=== PATIENT | male | born 1990 ===

== ENCOUNTER 2016-12-24 18:14 | Emergency (ER) | payer OTHER ==
[~2016-12-24 18:14] MED LIST: Acetaminophen/HYDROcodone 325-5 MG Tab PO ONE
[2016-12-24 18:20] VITALS: BP 151/84
[2016-12-24] MEDS ORDERED: Lidocaine 1% 20 ML MDV INJECT ONE (18:27)
[2016-12-24] MEDS ORDERED: Diphtheria,Pertussis(Acell),Tetanus Vaccine 0.5 ML Syringe IM ONE (18:31)
[2016-12-24] MEDS ORDERED: fentaNYL 100 MCG/2 ML SDV IM ONE (18:32)
--- NOTE | 2016-12-24 18:39 | EDM.PDOC ---
ED HPI GENERAL MEDICAL PROBLEM - General Chief Complaint: Laceration Stated Complaint: lacerations to right hand Time Seen by Provider: 12/24/16 18:25 Source of Information: Reports: Patient History Limitations: Reports: No Limitations - History of Present Illness INITIAL COMMENTS - FREE TEXT/NARRATIVE: Was working with metal and [employer] and his hand became crushed between the chain and the metal. He has some small lacerations to the palm of his hand and the back of hand. His hand is swollen and very tender to touch or move. States that it feels that it is being ripped apart on the inside when he moves it. Has good sensation to the distal fingertips and is able to move all of his fingers but it does cause pain. Good radial pulse noted. No other injuries noted. Onset: Today Location: Reports: Upper Extremity, Right Quality: Reports: Stabbing, Throbbing Severity: Severe Associated Symptoms: Reports: No Other Symptoms Right Hand Pain Score (Numeric/FACES): 9 - Related Data Allergies Allergy/AdvReac Type Severity Reaction Status Date / Time No Known Allergies Allergy Verified 12/24/16 18:18 Home Meds: Home Meds . [No Known Home Meds] 12/24/16 [History] Past Medical History - Past Surgical History Musculoskeletal Surgical History: Reports: Other (See Below) Other Musculoskeletal Surgeries/Procedures:: right knee acl repair ED ROS GENERAL - Review of Systems Review Of Systems: See Below Constitutional: Reports: No Symptoms Respiratory: Reports: No Symptoms Cardiovascular: Reports: No Symptoms Musculoskeletal: Reports: Hand Pain Skin: Reports: Wound Neurological: Reports: No Symptoms ED EXAM, SKIN/RASH Exam: See Below Exam Limited By: No Limitations General Appearance: Alert, WD/WN, Severe Distress Neck: Normal Inspection, Non-Tender Respiratory/Chest: No Respiratory Distress, Lungs Clear, Normal Breath Sounds Cardiovascular: Normal Peripheral Pulses, Regular Rate, Rhythm, No Edema Extremities: Other (Right hand is swollen and painful with any movement or touch. Good sensation distally noted. Is able to move all of his fingers at this time although it does cause pain.) Neurological: Alert, Oriented Skin: Warm, Dry, Wound/Incision (see HPI) Course - Vital Signs Last Recorded V/S: Last Vital Signs Temp 98.8 F 12/24/16 18:18 Pulse 73 12/24/16 18:18 Resp 20 12/24/16 18:18 BP 151/84 H 12/24/16 18:18 Pulse Ox 99 12/24/16 18:18 - Orders/Labs/Meds Orders: Active Orders 24 hr Category Date Time Status Vaccines to be Administered [RC] PER UNIT ROUTINE Care 12/24/16 18:32 Ordered Hand Comp Min 3V Rt [CR] Stat Exams 12/24/16 18:32 Ordered fentaNYL [Sublimaze] Med 12/24/16 18:32 Once 25 mcg IM ONETIME ONE Meds: Medications Discontinued Medications Generic Name Dose Route Start Last Admin Trade Name Miah PRN Reason Stop Dose Admin Diphtheria/Tetanus/Acell Pertussis 0.5 ml 12/24/16 18:31 Adacel IM 12/24/16 18:32 .ONCE ONE Lidocaine HCl 20 ml 12/24/16 18:27 Xylocaine 1% INJECT 12/24/16 18:28 ONETIME ONE - Re-Assessments/Exams Free Text/Narrative Re-Assessment/Exam: 12/24/16 19:[address] Bundy at [facility] orth[facility]. He recommends that he keeps it elevated, and pain meds. Departure - Departure Time of Disposition: 19:20 Disposition: Home, Self-Care 01 Condition: good Clinical Impression: Hand crush injury Qualifiers: Encounter type: initial encounter Laterality: right Qualified Code(s): S67.21XA - Crushing injury of right hand, initial encounter - Discharge Information Forms: ED Department Discharge Additional Instructions: Elevate hand as much as possible to keep swelling down Ice to hand to help with the swelling [place]- take 1-2 tablets every 4 hours as needed for pain control If you lose feeling in hand or fingers then you need to return to ER to be rechecked - Problem List & Annotations (1) Hand crush injury SNOMED Code(s): 08539085 Code(s): S67.20XA - CRUSHING INJURY OF UNSPECIFIED HAND, INITIAL ENCOUNTER Status: Acute Priority: High Current Visit: Yes Qualifiers: Encounter type: initial encounter Laterality: right Qualified Code(s): S67.21XA - Crushing injury of right hand, initial encounter - Problem List Review Problem List Initiated/Reviewed/Updated: Yes - My Orders Last 24 Hours: My Active Orders 12/24/16 18:32 Vaccines to be Administered [RC] PER UNIT ROUTINE Hand Comp Min 3V Rt [CR] Stat fentaNYL [Sublimaze] 25 mcg IM ONETIME ONE - Assessment/Plan Last 24 Hours: My Active Orders 12/24/16 18:32 Vaccines to be Administered [RC] PER UNIT ROUTINE Hand Comp Min 3V Rt [CR] Stat fentaNYL [Sublimaze] 25 mcg IM ONETIME ONE
[2016-12-24] MEDS ORDERED: fentaNYL 100 MCG/2 ML SDV IM STA (19:15)
[2016-12-24] MEDS ORDERED: Take Home: Acetaminophen/HYDROcodone 325-5 MG, 2 Tab Pack PO ONE (19:22)
[2016-12-24] MEDS ORDERED: Bacitracin/Neomycin/Polymyxin B Oint 0.9 GM U/D Packet TOP ONE (19:23)
== END 2016-12-24 19:35 | disposition home or self-care (01) ==
LOC: CC.ED 18:14
DX: S67.21XA Crushing injury of right hand, initial encounter (principal); S61.411A Laceration without foreign body of right hand, initial encounter; W23.0XXA Caught, crushed, jammed, or pinched between moving objects, initial encounter; Y92.69 Other specified industrial and construction area as the place of occurrence of the external cause; Y99.0 Civilian activity done for income or pay; Z23 Encounter for immunization; Z98.890 Other specified postprocedural states
CPT/HCPCS: 73130; 90471; 90715; 96372; 99283; A9270; J3010